=== PATIENT | female | born 1955 | race Hispanic/Latino ===

== ENCOUNTER 2017-05-20 10:07 | Outpatient (CLI) | payer BC ==
--- NOTE | 2017-05-20 14:45 | Mammography Report ---
BONE DEXA:05/20/17 10:07:00 CLINICAL: Postmenopausal. COMPARISON: Vitamin D deficiency. Postmenopausal. TECHNIQUE: Two site bone DEXA performed on an Hologic scanner. FINDINGS: The average BMD of the lumbar spine L1-L4 is 0.844g/cm squared with a T-score of -1.8 and a Z-score of -0.3. This compares to 0.873g/cm squared on the last exam and represents a -3.3% change from the previous baseline. The average BMD of the left hip is 0.760g/cm squared with a T-score of -1.5 and a Z-score of -0.4. This compares to 0.813g/cm squared on the last exam and represents a -6.5% change from the previous baseline. IMPRESSION: 1. WHO classification: Osteopenia with increased fracture risk based on both spine and left hip measurements. 2. Both spine and left hip BMD have declined since the last exam. RECOMMENDATION: Clinical correlation and routine screening. DEFINITIONS: BMD = Bone Mineral Density T-score = BMD related to mean peak bone mass of young adult (mean expressed in Standard Deviation) Z-score = Age matched BMD expressed in SD World Health Organization (WHO) Diagnostic Criteria Normal T-score > -1 SD Osteopenia T-score between -1 and -2.4 SD Osteoporosis T-score -2.5 SD or below NOTE: BMD is not the only risk factor for fracture; also consider factors such as the patient's age, risk of falling, previous osteoporotic fracture, family history of osteoporotic fractures, current smoker, and low body weight. Z-scores are not calculated if >80 years of age.
== END 2017-05-20 10:08 | disposition home or self-care (01) ==
LOC: SPVWC 10:07
PROVIDERS: ATTEND Internal Medicine Nephrology
DX: M85.88 Other specified disorders of bone density and structure, other site (principal); E55.9 Vitamin D deficiency, unspecified; Z78.0 Asymptomatic menopausal state
CPT/HCPCS: 77080

== ENCOUNTER 2020-10-31 10:31 | Outpatient (CLI) | payer MEDICARE, BC ==
--- NOTE | 2020-10-31 12:14 | Mammography Report ---
DIGITAL SCREENING MAMMOGRAM WITH CAD, 10/31/2020 CLINICAL INFORMATION / INDICATION: Routine screening mammography. SCREENING MAMMO TECHNIQUE: Digital bilateral 2D mammography was obtained in the craniocaudal and mediolateral obliqu e projections. This examination was interpreted with the benefit of Computer-Aided Detection analysis . COMPARISON: 05/19/2014 through 07/09/2017. FINDINGS: Breast Density: The breasts are heterogeneously dense, which may obscure small masses. No dominant mass, suspicious calcifications, or architectural distortion in either breast. IMPRESSION: No mammographic evidence of malignancy. Follow up recommendation: Routine yearly BI-RADS Category 1: Negative. A "normal" or negative report should not discourage follow up or biopsy of a clinically significant f inding. A written summary of these findings will be mailed to the patient. The patient will be entered into a mammography reporting system which will generate a reminder letter for the patient's next appointmen t at the appropriate interval. The [employer] recommends yearly mammograms starting at age 40 and continuing as l keren as a woman is in good health. Breast MRI is recommended for women with an approximate 20-25% or greater lifetime risk of breast cancer, including women with a strong family history of breast or ova rowdy cancer or who have been treated for Hodgkin's disease. Signer Name: Luis Alfredo Mcwilliams MD Signed: 10/31/2020 12:09 PM Workstation Name: [id number]
== END 2020-10-31 10:32 | disposition home or self-care (01) ==
LOC: SPVWC 10:31
DX: Z12.31 Encounter for screening mammogram for malignant neoplasm of breast (principal)
CPT/HCPCS: 77067

== ENCOUNTER 2021-11-14 13:56 | Outpatient (CLI) | payer MEDICARE, BC ==
--- NOTE | 2021-11-15 15:41 | Mammography Report ---
DIGITAL SCREENING MAMMOGRAM WITH CAD, 11/14/2021 CLINICAL INFORMATION / INDICATION: Routine screening mammography. SCREENING MAMMO TECHNIQUE: Digital bilateral 2D mammography was obtained in the craniocaudal and mediolateral obliqu e projections. This examination was interpreted with the benefit of Computer-Aided Detection analysis . COMPARISON: 10/31/2020 and 07/09/2017 FINDINGS: Breast Density: The breasts are heterogeneously dense, which may obscure small masses. No dominant mass, suspicious calcifications, or architectural distortion in either breast. IMPRESSION: No mammographic evidence of malignancy. Follow up recommendation: Routine yearly BI-RADS Category 1: NEGATIVE A "normal" or negative report should not discourage follow up or biopsy of a clinically significant f inding. A written summary of these findings will be mailed to the patient. The patient will be entered into a mammography reporting system which will generate a reminder letter for the patient's next appointmen t at the appropriate interval. The [employer] recommends yearly mammograms starting at age 40 and continuing as l keren as a woman is in good health. Breast MRI is recommended for women with an approximate 20-25% or greater lifetime risk of breast cancer, including women with a strong family history of breast or ova rowdy cancer or who have been treated for Hodgkin's disease. Signer Name: Juan M Aragon MD Signed: 11/15/2021 3:36 PM Workstation Name: [id number]
== END 2021-11-14 13:57 | disposition home or self-care (01) ==
LOC: SPVWC 13:56
DX: Z12.31 Encounter for screening mammogram for malignant neoplasm of breast (principal)
CPT/HCPCS: 77067